=== PATIENT | female | born 1970 | race African-American/Black ===

== ENCOUNTER 2017-04-12 13:44 | Emergency (ER) | payer MEDICAID ==
[~2017-04-12] VITALS: Ht 165.1 cm; Wt 95.4 kg
[2017-04-12] MEDS ORDERED: TRAM50TA4 PO (13:56)
[2017-04-12] MEDS ORDERED: LORA10TA7 PO (13:56)
[2017-04-12] MEDS ORDERED: PRED20 PO (13:56)
[2017-04-12] MEDS ORDERED: ERGO500044 PO (13:56)
[2017-04-12] MEDS ORDERED: FERR-89 PO (13:56)
[2017-04-12] MEDS ORDERED: ADV500 IH (13:56)
[2017-04-12] MEDS ORDERED: PROME5L PO (13:56)
[2017-04-12] MEDS ORDERED: FLUT16H NASAL (13:56)
[2017-04-12] MEDS ORDERED: TIOT185 IH (13:56)
[2017-04-12] MEDS ORDERED: FURO20 PO (13:56)
[2017-04-12 16:35] LABS: BASOPHILS % (AUTO) 0.4 % (0.0-2.0); EOSINOPHILS % (AUTO) 3.9 % (1.0-6.0); HEMATOCRIT 38.9 % (36-46); HEMOGLOBIN 13.1 g/dL (12.0-16.0); LYMPHOCYTES # (AUTO) 3.2 K/uL (1.0-4.8); LYMPHOCYTES % (AUTO) 41.1 % (22.0-44.0); MEAN CORPUSCULAR HEMOGLOBIN 30.6 pg (26.0-34.0); MEAN CORPUSCULAR HGB CONC 33.5 G/dL (31.0-37.0); MEAN CORPUSCULAR VOLUME 91 fL (80-100); MONOCYTES # (AUTO) 0.9 K/uL (0.1-1.0); MONOCYTES % (AUTO) 11.3 % (2.0-9.0); NEUTROPHILS # (AUTO) 3.3 K/uL (1.8-7.7); NEUTROPHILS % (AUTO) 43.3 % (40.0-70.0); PLATELET COUNT (AUTO) 369 K/uL (150-450); RED BLOOD CELL COUNT(AUTO) 4.26 MIL/uL (4.00-5.20); WHITE BLOOD COUNT (AUTO) 7.7 K/uL (4.5-11.0)
[2017-04-12 16:42] LABS: ANION GAP 10 mmol/L (8-16); CALCIUM, TOTAL 8.4 mg/dL (8.8-10.5); CARBON DIOXIDE 24 mmol/L (22-29); CHLORIDE 104 mmol/L (98-107); CREATININE 0.89 mg/dL (0.60-1.30); GLOMERULAR FILTR. RATE CALC > 60 mL/min (>60); POTASSIUM 3.9 mmol/L (3.5-5.1); SODIUM SERUM 138 mmol/L (136-145); UREA NITROGEN, BLOOD 10 mg/dL (7-18)
[2017-04-12 16:50] LABS: ALANINE AMINOTRANSFERASE 21 U/L (12-78); ASPARTATE AMINOTRANSFERASE 19 U/L (15-37); BILIRUBIN,TOTAL 0.2 mg/dL (0.1-1.0); TOTAL PROTEIN, SERUM 7.2 g/dL (6.4-8.2)
[2017-04-12] MEDS ORDERED: ACETAMINOPHEN 325 MG TABLET PO ONE (17:00)
[2017-04-12] MEDS ORDERED: GuaiFENesin/D-METHORPHAN [SUGAR-FREE] 200-20MG/10 ML SYRUP UDCUP PO ONE (17:00)
[2017-04-12 17:07] LABS: B-TYPE NATRIURETIC PEPTIDE 41 pg/mL (0-100)
[2017-04-12 18:08] VITALS: BP 145/95
== END 2017-04-12 18:35 | disposition home or self-care (01) ==
LOC: EDBD 13:48 → EMS 13:48
DX: J06.9 Acute upper respiratory infection, unspecified (principal); J44.9 Chronic obstructive pulmonary disease, unspecified; I10 Essential (primary) hypertension; F17.210 Nicotine dependence, cigarettes, uncomplicated
CPT/HCPCS: 71020; 99285

== ENCOUNTER 2017-04-18 17:32 | Emergency (ER) | payer MEDICAID ==
[~2017-04-18] VITALS: Ht 165.1 cm; Wt 84.1 kg
[~2017-04-18 17:32] MED LIST: ADV500 IH; ERGO500044 PO; FERR-89 PO; FLUT16H NASAL; FURO20 PO; LORA10TA7 PO; PRED20 PO; PROME5L PO; TIOT185 IH; TRAM50TA4 PO
[2017-04-18] MEDS ORDERED: MethylPREDNISolone SOD SUCC 125 MG/2 ML VIAL IM ONE (18:30)
[2017-04-18] MEDS ORDERED: ACETAMINOPHEN 325 MG TABLET PO ONE (18:30)
[2017-04-18 18:48] VITALS: BP 132/89
== END 2017-04-18 18:54 | disposition home or self-care (01) ==
LOC: EMS 17:36
DX: J44.1 Chronic obstructive pulmonary disease with (acute) exacerbation (principal); J06.9 Acute upper respiratory infection, unspecified; I11.0 Hypertensive heart disease with heart failure; I50.9 Heart failure, unspecified; F17.210 Nicotine dependence, cigarettes, uncomplicated
CPT/HCPCS: 96372; 99283; J2930